=== PATIENT | male | born 1985 | race Hispanic/Latino ===

== ENCOUNTER 2018-08-28 00:40 | Emergency (ER) | payer SELFPAY ==
[2018-08-28 00:59] VITALS: BMI 27.3
[2018-08-28] MEDS ORDERED: Sodium Chloride 0.9% 1,000 ML IV STA (01:08)
[2018-08-28 01:21] LABS: BASO # 0.1 K/uL (0.0-0.2); EOS # 0.3 K/uL (0.0-0.7); EOS % 4.7 % (0.0-4.0); HEMOGLOBIN 16.1 g/dL (12.0-18.0); LYMPH # 2.4 K/uL (1.0-4.3); LYMPH % 32.9 % (20.0-40.0); MEAN CELL VOLUME 94.1 fl (80.0-94.0); MEAN CORPUSCULAR HEMOGLOBIN 32.5 pg (27.0-31.0); MEAN CORPUSCULAR HGB CONC 34.5 g/dL (33.0-37.0); MEAN PLATELET VOLUME 7.2 fl (7.2-11.7); MONO % 13.6 % (0.0-10.0); NEUT # 3.5 K/uL (1.8-7.0); NEUT % 47.8 % (50.0-75.0); NRBC % 0.1 % (0.0-0.0); RBC 4.94 Mil/uL (4.40-5.90); RED CELL DISTRIBUTION WIDTH 12.6 % (11.5-14.5); WHITE BLOOD COUNT 7.4 K/uL (4.8-10.8)
[2018-08-28 01:31] LABS: BLOOD UREA NITROGEN 17 mg/dl (9-20); CALCIUM 9.6 mg/dL (8.4-10.2); GFR NON-AFRICAN AMERICAN > 60
--- NOTE | 2018-08-28 02:00 | ED PDOC ---
HPI: Hypertension/Hypotension Time Seen by Provider: 08/28/18 00:45 Chief Complaint (Nursing): Palpitations History Per: Patient History/Exam Limitations: no limitations Onset/Duration Of Symptoms: Mins Current Symptoms Are (Timing): Better Additional Complaint(s): Hx of "heart rhythm problem" presenting with palpitations, states he was walking home from a bar and states he was jumping into his couch and felt the onset of palpitations, he describes it as his heart "Quivering". Denies chest pain or pressure. States that this has happened 5 times in the past 5 years and has had workup in [facility] office including stress test without definitive answer as to etiology. States he drank alcohol today, denies drugs, states that he think he also did not drink enough water today. Denies stress. PMD: None Past Medical History Reviewed: Historical Data, Nursing Documentation, Vital Signs Vital Signs: Last Vital Signs Temp 98.3 F 08/28/18 00:57 Pulse 117 H 08/28/18 01:07 Resp 20 08/28/18 00:57 BP 119/51 L 08/28/18 01:07 Pulse Ox 98 08/28/18 00:57 - Medical History PMH: Cardia Arrhythmia - Family History Family History: States: Unknown Family Hx - Allergies Allergies/Adverse Reactions: Allergies Allergy/AdvReac Type Severity Reaction Status Date / Time sunflower seed Allergy VOMITING Verified 08/28/18 01:07 Review of Systems ROS Statement: Except As Marked, All Systems Reviewed And Found Negative Cardiovascular: Positive for: Palpitations. Negative for: Chest Pain Physical Exam - Reviewed Nursing Documentation Reviewed: Yes Vital Signs Reviewed: Yes - Physical Exam Appears: Positive for: Well, Non-toxic, No Acute Distress Head Exam: Positive for: ATRAUMATIC, NORMAL INSPECTION, NORMOCEPHALIC Skin: Positive for: Normal Color, Warm, DRY Eye Exam: Positive for: EOMI, Normal appearance, PERRL ENT: Positive for: Normal ENT Inspection Neck: Positive for: Normal, Painless ROM Cardiovascular/Chest: Positive for: Tachycardia Respiratory: Positive for: CNT, Normal Breath Sounds Gastrointestinal/Abdominal: Positive for: Normal Exam, Soft Back: Positive for: Normal Inspection Extremity: Positive for: Normal ROM Neurologic/Psych: Positive for: Alert, Oriented - Laboratory Results Result Diagrams: 08/28/18 01:12 08/28/18 01:12 - ECG ECG Rhythm: Positive for: Atrial Fibrillation Rate: 190 O2 Sat by Pulse Oximetry: 98 Pulse Ox Interpretation: Normal - Critical Care Total Time (In Min): 30 Documented Critical Care: Time excludes all time spent performint seperately billable procedures Medical Decision Making Medical Decision MakinAM Patient presenting with tachycardia --Initial rhythm showed afib with RVR, BP normal --Patient was immediately placed on monitor, IV, O2 established, crash cart placed at bedside --During history taking, patient stated that he started to feel better and that his heart was no longer quivering, repeat EKG showed that he was no longer in Afib but rather sinus tach --Likely patient's presentation due to alcohol use, dehydration, or the increased sympathetic tone from jumping onto the couch (patient states it has happened like that in the past) --Will give PO and IV fluids, check labs, and continue to closely monitor patient 2AM --Patient continues to improve --HR 100-115bpm --Aberrant HR entered into system as 191 which is incorrect 3AM --HR continues to improve, HR in 90s --Patient feeling well, no longer having tachycardia --Advised patient to followup with his Cardiologst in [facility] --Very well appearing, ambulatory upon discharge Disposition - Clinical Impression Clinical Impression: Atrial fibrillation - Patient ED Disposition Is Patient to be Admitted: No - Disposition Referrals: [facility] [Outside] Disposition: Routine/Home Disposition Time: 03:38 Condition: IMPROVED Instructions: Atrial Fibrillation (DC) Forms: Simpler ([place])
[2018-08-28 03:15] LABS: BARBITURATES, UR NEGATIVE (NEGATIVE); BENZODIAZEPINES, UR NEGATIVE (NEGATIVE); OPIATES, UR NEGATIVE (NEGATIVE); PHENCYCLIDINE, UR NEGATIVE (NEGATIVE)
[2018-08-28 04:03] VITALS: BP 115/74; PULSE 94; RESP 12; TEMP 98; O2SAT 95
--- NOTE | 2018-08-28 08:55 | RAD ---
Date of service: 08/28/2018 PROCEDURE: CHEST RADIOGRAPH, 1 VIEW HISTORY: tachy COMPARISON: None available. FINDINGS: LUNGS: Clear. PLEURA: No pneumothorax or pleural fluid seen. CARDIOVASCULAR: No aortic atherosclerotic calcification present. Normal. OSSEOUS STRUCTURES: No significant abnormalities. VISUALIZED UPPER ABDOMEN: Normal. OTHER FINDINGS: None. IMPRESSION: No active disease.
--- NOTE | 2018-08-28 18:31 | CARD ---
APPROVED REPORT Date of service: 08/28/2018 EKG Measurement Heart [id number] <Conclusion> Atrial fibrillation with rapid ventricular response ST abnormality, possible inferior ischemia. Abnormal ECG
== END 2018-08-28 04:00 | disposition home or self-care (01) ==
LOC: H.ER 00:40
DX: I48.91 Unspecified atrial fibrillation (principal); I10 Essential (primary) hypertension
CPT/HCPCS: 71045; 80048; 84484; 85025; 93005; 99285; G0480; J7030